=== PATIENT | female | born 1980 | race American Indian/Alaskan Native ===

== ENCOUNTER 2017-11-19 19:47 | Emergency (ER) | payer MEDICAID, OTHER ==
[2017-11-19 19:59] VITALS: PULSE 71
[2017-11-19] MEDS ORDERED: diaZEpam 10 mg/2 ml Inj IVP STA (20:22)
--- NOTE | 2017-11-19 20:25 | C.PDOC ---
History Of Present Illness 37 y/o F c PMHx HTN p/w back pain x 2 days. Patient states she was sitting in chair when she suddenly developed a pain in the R lower back that shot up to her upper back and is now radiating to the R shoulder and R arm. She denies trauma. She states she has had this pain multiple times before, will typically last for a week, occurring every few months or so. She also reports mild shortness of breath. Denies fever, chills, nausea, vomiting, hemoptysis, leg swelling, recent surgery, OCP use. She states her blood pressure currently is baseline for her. Time Seen by Provider: 11/19/17 20:13 Chief Complaint (Nursing): High Blood Pressure Past Medical History Vital Signs: Last Vital Signs Temp 98.8 F 11/19/17 19:54 Pulse 71 11/19/17 19:54 Resp 14 11/19/17 19:54 BP 234/135 H 11/19/17 20:11 Pulse Ox 97 11/19/17 20:36 - Medical History PMH: HTN (non compliant) Family History: States: No Known Family Hx - Social History Hx Alcohol Use: Yes Hx Substance Use: Yes - Immunization History Hx Tetanus Toxoid Vaccination: Yes Hx Influenza Vaccination: Yes Hx Pneumococcal Vaccination: No Review Of Systems Except As Marked, All Systems Reviewed And Found Negative. Constitutional: Negative for: Fever Cardiovascular: Negative for: Chest Pain Physical Exam - Physical Exam Additional Physical Exam Comments: Constitutional: No acute distress. Head: Normocephalic. Atraumatic. Eyes: PERRL. ENT: Moist mucous membranes. Neck: Supple. Cardiovascular: Regular rate. Radial pulse 2+ bilaterally. No murmur Chest: No tenderness. No midline tenderness Respiratory: Clear to auscultation bilaterally. GI: Soft. Nontender. Nondistended. Back: No CVA tenderness. Musculoskeletal: No tenderness or swelling of extremities. Skin: No rash. Neurologic: Alert, no focal deficit. ED Course And Treatment - Laboratory Results Result Diagrams: 11/19/17 19:00 11/19/17 19:00 ECG: Interpreted By Me, Viewed By Me ECG Rhythm: Sinus Rhythm Interpretation Of ECG: no ST/T wave changes Rate From EC O2 Sat by Pulse Oximetry: 97 (RA) Pulse Ox Interpretation: Normal Medical Decision Making Medical Decision Making: PERC negative. CXR negative for effusion, infiltrate, or widened mediastinum. After toradol and valium PO, patient states pain is completely gone. Will discharge, continue ibuprofen and robaxin, f/u clinic, return to ED for worsening pain, dyspnea, or any other problem. Disposition - Disposition Referrals: [facility] [Outside] Disposition: HOME/ ROUTINE Disposition Time: 21:51 Condition: STABLE Prescriptions: Famotidine [Pepcid] 1 tab PO BID #14 tab Ibuprofen [Motrin] 600 mg PO Q6 #25 tab Methocarbamol [Robaxin-750] 1 tab PO Q8H #12 tablet Instructions: Muscle Spasms (DC) Forms: [email or web address] (Greek) - Clinical Impression Clinical Impression: Back pain - Scribe Statement The provider has reviewed the documentation as recorded by the Scribe Kady Buenrostro All medical record entries made by the Scribe were at my direction and personally dictated by me. I have reviewed the chart and agree that the record accurately reflects my personal performance of the history, physical exam, medical decision making, and the department course for this patient. I have also personally directed, reviewed, and agree with the discharge instructions and disposition.
[2017-11-19 20:49] LABS: HCG,QUALITATIVE URINE NEGATIVE (NEGATIVE)
[2017-11-19 20:51] LABS: SQUAMOUS EPITHIAL 6 /hpf (0-5); URINE BILIRUBIN NEGATIVE (NEGATIVE); URINE BLOOD NEGATIVE (NEGATIVE); URINE CLARITY Hazy (Clear); URINE COLOR Yellow (YELLOW); URINE GLUCOSE (UA) NORMAL (Normal); URINE LEUKOCYTE ESTERASE NEG Leu/uL (Negative); URINE PROTEIN 1+ mg/dL (NEGATIVE); URINE UROBILINOGEN NORMAL mg/dL (0.2-1.0)
[2017-11-19 21:06] LABS: BASO % 0.5 % (0.0-2.0); EOS # 0.2 K/uL (0.0-0.7); EOS % 2.4 % (0.0-4.0); HEMOGLOBIN 11.7 g/dL (11.0-16.0); LYMPH # 2.5 K/uL (1.0-4.3); LYMPH % 33.7 % (20.0-40.0); MEAN CORPUSCULAR HEMOGLOBIN 23.8 pg (27.0-31.0); MEAN PLATELET VOLUME 8.7 fL (7.2-11.7); MONO # 0.6 K/uL (0.0-0.8); NEUT # 4.2 K/uL (1.8-7.0); NEUT % 55.4 % (50.0-75.0); NRBC % 0.1 % (0.0-2.0); RBC 4.93 Mil/uL (3.80-5.20); RED CELL DISTRIBUTION WIDTH 15.3 % (11.5-14.5); WHITE BLOOD COUNT 7.5 K/uL (4.8-10.8)
[2017-11-19 21:18] LABS: ALB/GLOB RATIO 1.2 (1.0-2.1); ALBUMIN 4.2 g/dL (3.5-5.0); ALT/SGPT 24 U/L (9-52); AST/SGOT 18 U/L (14-36); BLOOD UREA NITROGEN 9 mg/dL (7-17); CALCIUM 9.3 mg/dl (8.6-10.4); GFR AFRICAN-AMERICAN > 60; GFR NON-AFRICAN AMERICAN > 60
[2017-11-19 21:30] LABS: CK-MB 0.42 ng/mL (0.0-3.38)
[2017-11-19 22:19] VITALS: BP 183/100; RESP 18; TEMP 97.9; O2SAT 100
--- NOTE | 2017-11-20 11:25 | RAD ---
Date of service: 11/19/2017 HISTORY: R sided back pain COMPARISON: No prior. TECHNIQUE: Chest PA and lateral FINDINGS: LUNGS: No active pulmonary disease. PLEURA: No significant pleural effusion identified. No pneumothorax apparent. CARDIOVASCULAR: No radiographic findings to suggest acute or significant cardiovascular disease. OSSEOUS STRUCTURES: No significant abnormalities. VISUALIZED UPPER ABDOMEN: Normal. OTHER FINDINGS: None. IMPRESSION: No active disease.
--- NOTE | 2017-11-20 23:12 | CARD ---
APPROVED REPORT Date of service: 11/19/2017 EKG Measurement Heart [id number] <Conclusion> Normal sinus rhythm with sinus arrhythmia Moderate voltage criteria for LVH, may be normal variant Borderline ECG
== END 2017-11-19 22:19 | disposition home or self-care (01) ==
LOC: C.ER 19:47
DX: M54.5 Low back pain (principal); I10 Essential (primary) hypertension
CPT/HCPCS: 71046; 80053; 81001; 82550; 82553; 84484; 84703; 85025; 87086; 93005; 96374; 99285; J1885

== ENCOUNTER 2018-04-14 19:43 | Emergency (ER) | payer OTHER ==
[2018-04-14 20:11] VITALS: RESP 18; O2SAT 97
--- NOTE | 2018-04-14 21:20 | C.PDOC ---
History Of Present Illness Patient reports several day history of gum swelling over L upper canine/incisor. Reports some pain, has not taken any over the counter pain meds. States "I think it's from my cavitities" which she reports she has had for over a year. She has not seen a dentist, states she has no insurance. No facial pain or fever. Time Seen by Provider: 04/14/18 20:09 Chief Complaint (Nursing): Dental Pain Past Medical History Reviewed: Historical Data, Nursing Documentation, Vital Signs Vital Signs: Last Vital Signs Temp 98.6 F 04/14/18 19:52 Pulse 89 04/14/18 19:52 Resp 18 04/14/18 19:52 BP 224/132 H 04/14/18 20:26 Pulse Ox 97 04/14/18 19:52 - Medical History PMH: HTN (non compliant) Family History: States: Unknown Family Hx - Social History Hx Alcohol Use: No Hx Substance Use: Yes - Immunization History Hx Tetanus Toxoid Vaccination: Yes Hx Influenza Vaccination: No Hx Pneumococcal Vaccination: No Review Of Systems Except As Marked, All Systems Reviewed And Found Negative. Constitutional: Negative for: Fever ENT: Negative for: Mouth Swelling, Throat Pain, Throat Swelling Skin: Negative for: Rash Neurological: Negative for: Altered Mental Status, Headache Physical Exam - Physical Exam Appears: Well, Non-toxic, No Acute Distress Skin: Normal Color, Warm, Dry Head: Normacephalic Oral Mucosa: Moist Tongue: Normal Appearing Teeth: Caries, No Tender To Palpation, Other (gum swelling over L upper incisor/canine) Gingiva: Erythema, Swelling, Tender Throat: Normal ED Course And Treatment O2 Sat by Pulse Oximetry: 97 Medical Decision Making Medical Decision Making: Rx written for Penicillin VK. Of note, patient was found to be hypertensive, 224/132. Patient states "my pressure has always been like that", is not on any antihypertensives. Denies any symptoms such as dizziness, headache, vision change, chest pain, dyspnea. Will write for two weeks of HCTZ, encouraged patient to follow up as outpatient. Disposition - Disposition Referrals: [facility] [Outside] Disposition: HOME/ ROUTINE Disposition Time: 21:28 Condition: STABLE Additional Instructions: FRANKO TEMPLE, thank you for letting us take care of you today. Your provider was Diane Mosher MD and you were treated for LT SIDE FACE PAIN. The emergency medical care you received today was directed at your acute symptoms. If you were prescribed any medication, please fill it and take as directed. It may take several days for your symptoms to resolve. Return to the Emergency Department if your symptoms worsen, do not improve, or if you have any other problems. Please contact your doctor or call one of the physicians/clinics you have been referred to that are listed on the Patient Visit Information form that is included in your discharge packet. Bring any paperwork you were given at discharge with you along with any medications you are taking to your follow up visit. Our treatment cannot replace ongoing medical care by a primary care provider outside of the emergency department. Thank you for allowing the [facility] team to be part of your care today. If you had an X-Ray or CT scan: A Radiologist will review the ED reading if any change in treatment is needed we will contact you. If you had a blood, urine, or wound culture: It will take several days for the results, if any change in treatment is needed we will contact you. If you had an STI test: It will take 48 hours for the results. Please call after 1 week if you have not heard back. Prescriptions: hydroCHLOROthiazide [Microzide] 12.5 mg PO DAILY #14 cap Penicillin VK [Penicillin VK Tab] 500 mg PO QID #28 tab Instructions: High Blood Pressure (DC), Dental Pain (DC) Forms: [email or web address] (Chinese) - Clinical Impression Clinical Impression: Dental abscess, Dental caries, Hypertension
[2018-04-14 21:30] VITALS: BP 189/86; PULSE 81; TEMP 98.4
== END 2018-04-14 21:31 | disposition home or self-care (01) ==
LOC: C.ER 19:43
DX: K04.7 Periapical abscess without sinus (principal); K02.9 Dental caries, unspecified; I10 Essential (primary) hypertension